=== PATIENT | female | born 1955 | race Caucasian/White ===

== ENCOUNTER 2025-05-20 14:31 | Outpatient (CLI) | payer MEDICARE, SELFPAY ==
--- NOTE | ~2025-05-20 | XR_ITS ---
EXAMINATION: XR hip RT 2V w AP pelvis, 05/20/2025 14:52 CDT HISTORY: M16.11 - Unilateral primary osteoarthritis, right hip COMPARISON: No comparisons available. Findings: No acute fracture or malalignment. Left arthroplasty intact. Severe right-sided degenerative changes. Soft tissues unremarkable. Impression: No acute fracture or malalignment. Reviewed, dictated and finalized at location P. Impression: No acute fracture or malalignment.
--- OUTSIDE RECORDS SUMMARY | 2025-05-20 16:38 | XMS_ITS | Clinical Summary ---
Author Organization [facility] Address [address] [facility], [place] [address] Phone Care Team Providers Care Coyote Hunter Name Role Phone Shahbaz Oglesby MD Primary Care Provider [phone] Allergies Active Allergy Reactions Criticality Noted Date Comments Cephalexin Itching 11/08/2016 Latex Rash 01/26/2024 Medications LISINOPRIL PO Take by mouth. A ctive Aspirin 81 MG Tablet Take 81 mg by mouth daily. Active Calcium Citrate-Vitamin D (CALCIUM + D PO) Take by mouth. Activ e Tiotropium [place] Monohydrate (SPIRIVA HANDIHALER IN) take by inhalation. Active budesonide-form oterol fumarate (SYMBICORT) 160-4.5 MCG/ACT Aerosol take 2 Puffs by inhalation 2 times daily. 1 Inhaler 3 7 Active Additional Information Patient not taking.Reported on 12/04/2024 aspirin 325 MG Tablet Take by mouth. Activ e CALCIUM CARBONATE ANTACID Take by mouth as needed. Active HYDROcodone-claritza taminophen (NORCO) 5-325 MG Tablet Take 1 Tab by mouth every 6 hours as needed for Pain. 12 Tab 7 Active Additional Information Patient not taking.Reported on 12/04/2024 esomeprazole (NEXIUM) 20 MG CAPSULE DELAYED RELEASE take 1 capsule by oral route every day 5 Active albuterol (PROVENTIL HFA, VENTOLIN HFA) 108 (90 Base) MCG/ACT Aerosol Solution inhale 2 puff by inhalation route every 4 - 6 hours as needed 6 Active ferrous sulfate 325 (65 Fe) MG Tablet Take by mouth as needed. 7 Active oxyCODONE-Aceta minophen (Percocet) 10-325 MG TabletIndicatio ns:Chronic back pain Take 1 Tablet by mouth every 4 hours as needed for Severe pain. 15 Tablet 4 Active Additional Information Patient not taking.Reported on 12/04/2024 hydroCHLOROthia zide 12.5 MG Tablet Take 12.5 mg by mouth daily. Active losartan (COZAAR) 50 MG Tablet Take 50 mg by mouth daily. Active albuterol (ProAir HFA) 108 (90 Base) MCG/ACT Aerosol Solution take 2 Puffs by inhalation every 4 hours as needed for Wheezing or Cough. 8 g 4 Active methylPREDNISol one (MEDROL) 4 MG Tablet 6 tabs day 1, 5 tabs day 2, 4 tabs day 3, 3 tabs day 4, 2 tabs day 5, 1 tab day 6 21 Tablet 4 Active Additional Information Patient not taking.Reported on 12/04/2024 oxyCODONE-aceta minophen (PERCOCET) 5-325 MG Tablet Take 1 Tablet by mouth every 4 hours as needed for Moderate or more severe pain. Active Docusate Calcium (STOOL SOFTENER PO) Take by mouth as needed. Active Denosumab (PROLIA SC) by Subcutaneous route every 180 days. Active Melatonin 5 MG Tablet Take 5 mg by mouth nightly. Active diphenhydrAMINE HCl (BENADRYL ALLERGY PO) Take by mouth as needed. Active Active Problems Problem Noted Date Diagnosed Date Chronic respiratory failure with hypoxia 018 DOMENIC (obstructive sleep apnea) 04/09/2017 Centrilobular emphysema 11/08/2016 SOB (shortness of breath) 11/08/2016 Cough 11/08/2016 Non morbid obesity due to excess calories 2016 Essential (primary) hypertension 11/08/2016 Family History Medical History Relation Name Comments Kidney Disease Mother Relation Name Status Comments Father Other Mother Social History Tobacco Use Types Packs/Day Years Used Date Smoking Tobacco: Former Cigarettes Smokeless Tobacco: Never Tobacco Cessation:Counseling Given: No Alcohol Use Standard Drinks/Week Comments Yes 0 (1 standard drink = 0.6 oz pur e alcohol) occasionally Comments No Sex and Gender Information Value Date Recorded Sex Assigned at Not on file Legal Sex Female 8:02 PM CDT Gender Identity Not on file Sexual Orientation Not on file Last Filed Vital Signs Vital Sign Reading Time Taken Comments Blood Pressure 153/63 12/14/2024 9:03 AM CDT Pulse 86 12/14/2024 9:03 AM CDT Temperature 36.4 C (97.6 F) 12/14/2024 9:03 AM CDT Respiratory Rate 15 12/14/2024 9:03 AM CDT Oxygen Saturation 98% 12/14/2024 9:03 AM CDT Inhaled Oxygen Concentration - - Weight 108.9 kg (240 lb) 12/14/2024 8:05 AM CDT Height 172.7 cm (5' 8) 12/14/2024 8:05 AM CDT Body Mass Index 36.49 12/14/2024 8:05 AM CDT Plan of Treatment Health Maintenance Due Date Last Done Comments DEXA Bone Density 1955 Hepatitis C Virus (HCV) Screening 1955 TdaP Immunization 1955 Cologuard 2002 Colonoscopy 2002 Zoster Immunization (1 of 2) 2007 Medicare Initial AWV [id number] 12/03/2013 Pneumococcal Immunization (50+ years) (2 of 2 - PCV) 05/26/2015 05/26/2014, 05/15/2013 Respiratory Syncytial Virus (RSV) Immunization (Adult) (1 - Risk 60-74 years 1-dose series) 2017 Colorectal Cancer Screening 04/09/2018 Immunochemical Fecal Occult Blood 04/09/2018 04/09/2017 Influenza Immunization (#1) 04/05/202506/06, 05/10/2023, 06/15/2022, Additional history exists SARS-COV-2 Immunization ( season) 2025 06/30/2024, 05/10/2023, 04/24/2022, Additional history exists Mammogram 05/01/2025 05/01/2024, 07/05, 10/14/2019 Pneumococcal Immunization Combined Discontinued 05/26/2014, 05/15/2013 Hepatitis B Immunization Aged Out No longer eligible based on patient's age to complete this topic Human Papillomavirus (HPV) Immunization Aged Out No longer eligible based on patient's age to complete this topic Meningococcal Immunization (ACWY) Aged Out No longer eligible based on patient's age to complete this topic Rotavirus Immunization Aged Out No lo nger eligible based on patient's age to complete this topic Medical Devices Implanted Type Area Editor News Device Identifier Shelf Expiration Date Model / Serial / Lot Tecnis 1-Piece Iol With Tecnis Simplicity Delivery System Implanted:Qty: 1 on 11/30/2024 by Irma Starr MD PhD at [facility] Left: Eye [employer] 04/23/2027 [id number] / [id number] / [id number] Technis 1-Piece Iol With Simplicity Delivery System Implanted:Qty: 1 on 12/14/2024 by Irma Starr MD PhD at [facility] Right: Eye 07/09/2027 [id number] / [id number] / [id number] Procedures Procedure Name Priority Date/Time Associated Diagnosis Comments STOOL, OCCULT BLOOD, DIAGNOSTIC, VIA GUAIAC STAT 04/09/2017 6:00 PM CDT from Last 3 Months or Most Recently Relevant to Health Maintenance Results * Stool, Occult Blood, Diagnostic (04/09/2017 6:00 PM CDT) OCCULT BLOOD DIAG Negative Negative 04/09/2017 6:33 PM CDT [facility] Stool specimen (specimen) STOOL SPECIMEN / Unknown Non-Phlebotomy Collection / Unknown 04/09/2017 6:00 PM CDT 04/09/2017 6:14 PM CDT us Monico Villagran PAC BODY FLUIDS & STOOLS ORDERABLES Final Result [facility] [address] [place] [address] from Last 3 Months or Most Recently Relevant to Health Maintenance Additional Health Concerns Infection Onset Date Last Indicated MRSA 05/02/2017 05/02/2017 Insurance MEDICARE C [facility] Care Teams Coyote Hunter Relationship Specialty Start Date End Date [place] [id number] PCP - General Internal Medicine 10/15/16
--- OUTSIDE RECORDS SUMMARY | 2025-05-20 16:38 | XMS_ITS | Clinical Summary ---
Author Organization [facility] Address [address] [place] [id number] Care Team Providers Care Belt Operator Name Role Phone Unavailable Primary Care Provider Unavailabl e Immunizations Immunization Administration Dates Next Due MODERNA COVID-19 BIVALENT (1 2+), MRNA, LNP-S, PF 04/24/2022 MODERNA COVID-19 (12+) MRNA, LNP-S, PF, 100 MCG/ 0.5 ML DOSE 06/13/2021,10/07/2020,09/09/2020 Social History Tobacco Use Types Packs/Day Years Used Date Smoking Tobacco: Never Assessed Comments Unknown Sex and Gender Information Value Date Recorded Sex Assigned at Not on file Legal Sex Female 11:55 AM CDT Gender Identity Not on file Sexual Orientation Not on file Plan of Treatment Health Maintenance Due Date Last Done Comments Colorectal Cancer Screening Colonoscopy (10 Years) 1957 Hepatitis C 1975 DTaP, Tdap and Td Vaccines (1 - Tdap) 1976 Mammogram Screening 1997 Zoster Vaccines (1 of 2) 2007 Pneumococcal Vaccine: 50+ Years (2 of 2 - PCV) 05/26/2015 05/26/2014 Annual Medicare Wellness Visit 2022 Dexa Scan (General) 2022 COVID-19 Vaccine ( season) 2025 05/10/2023, 04/24/2022, 06/13/2021, Additional history exists Influenza Adult (#1) 2025 05/02/2021, 04/18/2020, 04/15/2017 RSV Immunization or 60+ Years (1 - 1-dose 75+ series) 2032 Hepatitis A Vaccines Aged Out No long er eligible based on patient's age to complete this topic Meningococcal B Vaccine Aged Out No l onger eligible based on patient's age to complete this topic Meningococcal Vaccine Aged Out No jerardo evelyne eligible based on patient's age to complete this topic RSV Immunizations Under 20 Months Aged Out No longer eligible based on patient's age to complete this topic Insurance U[employer] MEDICARE
== END 2025-05-20 14:32 | disposition home or self-care (01) ==
PROVIDERS: PCP Family Medicine; Visit Provider Orthopaedic Surgery
DX: M16.11 Unilateral primary osteoarthritis, right hip (principal)
CPT/HCPCS: 73502